=== PATIENT | female | born 1975 | race Caucasian/White ===

== ENCOUNTER 2020-07-18 16:27 | Emergency (ER) | payer MEDICAID ==
[~2020-07-18] VITALS: Ht 162.6 cm; Wt 124.7 kg
[2020-07-18] MEDS ORDERED: SODIUM CHLORIDE 0.9% 1,000 ML IV ONE ×2 (16:45)
[2020-07-18] MEDS ORDERED: ASPirin 81 mg TAB PO ONE (17:00)
[2020-07-18 17:24] LABS: Basophils # (auto) 0 10 ^3/uL (0-0.2); Basophils % (auto) 0.3 % (0.0-2.0); Eosinophils # (auto) 0.2 10 ^3/uL (0-0.8); Eosinophils % (auto) 3.3 % (0.0-7.0); Hematocrit 39.7 % (36.0-46.0); Hemoglobin 13.1 g/dL (12.2-16.2); Lymphocytes # (auto) 1.1 10 ^3/uL (0.4-5.4); Lymphocytes % (auto) 18.8 % (10.0-50.0); Mean Corpuscular Hgb Conc. 33.1 g/dL (32.0-36.0); Mean Corpuscular Volume 87.7 fL (80.0-100.0); Monocytes # (auto) 0.4 10 ^3/uL (0-1.3); Monocytes % (auto) 7.3 % (0.0-12.0); Neutrophils % (auto) 70.3 % (37.0-80.0); Platelet Count (auto) 183 10^3/uL (140-450); Red Blood Cells 4.53 10^6/uL (4.0-5.20); Red Cell Distribution Width 14.1 % (11.8-14.3); White Blood Cell 5.7 10^3/uL (4.4-10.8)
[2020-07-18 17:43] LABS: Alanine Aminotransferase 19 U/L (13-56); Albumin 3.2 g/dL (3.4-5.0); Anion Gap 4 (5-15); Aspartate Aminotransferase 11 U/L (15-37); BUN/Creatinine Ratio 13.9; Blood Urea Nitrogen 10 mg/dL (7-18); Calcium 8.1 mg/dL (8.5-10.1); Carbon Dioxide 27 mmol/L (21-32); Chloride 109 mmol/L (98-107); GFR African American 113 mL/min; GFR Non-African American 93 mL/min; Glucose 95 mg/dL (74-106); Potassium 4.1 mmol/L (3.5-5.1); Sodium 140 mmol/L (136-145)
[2020-07-18 17:47] LABS: Alkaline Phosphatase 86 U/L (45-117); Bilirubin, Total 0.4 mg/dL (0.2-1.0); Total Protein 6.8 g/dL (6.4-8.2)
[2020-07-18] MEDS ORDERED: MECLIZINE HCL 25 MG TAB PO ONE (18:00)
[2020-07-18] MEDS ORDERED: ONDANSETRON ODT 4 MG TAB PO ONE (18:00)
[2020-07-18 20:54] LABS: Urine Bacteria NONE SEEN /hpf (None Seen); Urine Blood Negative /uL (Negative); Urine Mucus FEW (None Seen); Urine WBC 1 /hpf (0 - 5)
[2020-07-19] MEDS ORDERED: ACETAMINOPHEN 325 MG TAB PO ONE (00:15)
[2020-07-19 00:32] VITALS: BP 139/69
== END 2020-07-19 00:40 | disposition home or self-care (01) ==
LOC: EDBD 16:27 → ER 16:27
DX: I24.9 Acute ischemic heart disease, unspecified (principal); R10.13 Epigastric pain; Z88.8 Allergy status to other drugs, medicaments and biological substances
CPT/HCPCS: 36415; 70450; 71045; 74176; 80053; 81001; 84484; 85025; 93005; 96360; 96361; 99285; J8597; Q0162

== ENCOUNTER 2024-08-16 21:18 | Emergency (ER) | payer MEDICAID ==
[~2024-08-16] VITALS: Ht 170.2 cm; Wt 113.6 kg
[2024-08-16 21:50] VITALS: PULSE 73; RESP 13; TEMP 99.2; O2SAT 97
[2024-08-16 22:09] LABS: Basophils # (auto) 0 10 ^3/uL (0-0.2); Basophils % (auto) 0.4 % (0.0-2.0); Eosinophils # (auto) 0.2 10 ^3/uL (0-0.8); Eosinophils % (auto) 4.2 % (0.0-7.0); Hematocrit 41.5 % (36.0-46.0); Hemoglobin 13.5 g/dL (12.2-16.2); Lymphocytes # (auto) 1.2 10 ^3/uL (0.4-5.4); Lymphocytes % (auto) 21.3 % (10.0-50.0); Mean Corpuscular Hemoglobin 29.9 pg (28.0-32.0); Mean Corpuscular Hgb Conc. 32.6 g/dL (32.0-36.0); Mean Corpuscular Volume 91.8 fL (80.0-100.0); Monocytes # (auto) 0.4 10 ^3/uL (0-1.3); Monocytes % (auto) 6.5 % (0.0-12.0); Neutrophils # (auto) 3.9 10 ^3/uL (1.6-8.6); Neutrophils % (auto) 67.6 % (37.0-80.0); Nucleated Red Blood Cells % 0.1 %; Platelet Count (auto) 219 10^3/uL (140-450); Red Blood Cells 4.52 10^6/uL (4.0-5.20); Red Cell Distribution Width 13.9 % (11.8-14.3); White Blood Cell 5.8 10^3/uL (4.4-10.8)
[2024-08-16 22:26] LABS: INR 0.94 (0.9-1.15); Partial Thromboplastin Time 25.6 SEC (24.5-34.5)
[2024-08-16 22:27] LABS: Alanine Aminotransferase 16 U/L (7-40); Alkaline Phosphatase 90 U/L (46-116); Anion Gap 7 (5-15); Aspartate Aminotransferase 15 U/L (13-40); BUN/Creatinine Ratio 16.3 (10.0-20.0); Bilirubin, Total 0.2 mg/dL (0.2-1.0); Blood Urea Nitrogen 14 mg/dL (9-23); Calcium 8.8 mg/dL (8.7-10.4); Carbon Dioxide 27 mmol/L (20-31); Chloride 110 mmol/L (98-107); Glucose 169 mg/dL (74-106); Magnesium 1.8 mg/dL (1.6-2.6); Potassium 3.8 mmol/L (3.5-5.1); Sodium 144 mmol/L (136-145)
[2024-08-17] VITALS: BP 137/75; PULSE 76; RESP 15; O2SAT 96
== END 2024-08-17 00:52 | disposition home or self-care (01) ==
LOC: ER 21:18 → EDBD 21:18 → ER 08-17 00:52
DX: R07.89 Other chest pain (principal); M25.511 Pain in right shoulder; E11.9 Type 2 diabetes mellitus without complications; F32.A Depression, unspecified; E78.5 Hyperlipidemia, unspecified; Z88.5 Allergy status to narcotic agent; Z88.8 Allergy status to other drugs, medicaments and biological substances
CPT/HCPCS: 36415; 71045; 80053; 83735; 83880; 84484; 85025; 85610; 85730; 93005